=== PATIENT | male | born 1980 | race Caucasian/White ===

== ENCOUNTER 2017-05-25 12:41 | Emergency (ER) | payer OTHER | END 2017-05-25 13:18 | disposition home or self-care (01) | LOC: E/R 12:41 | DX: J20.9 Acute bronchitis, unspecified (principal) | CPT/HCPCS: 99284 ==

== ENCOUNTER 2017-06-17 12:43 | Emergency (ER) | payer OTHER | END 2017-06-17 17:11 | disposition home or self-care (01) | LOC: FTE 12:43 | DX: J06.9 Acute upper respiratory infection, unspecified (principal) | CPT/HCPCS: 71045; 99284-25 ==

== ENCOUNTER → 2017-11-11 19:48 | Emergency (ER) | payer OTHER ==
[2017-11-11] MEDS: LORAZEPAM 1 MG TAB PO (19:39)
[2017-11-11] MEDS: KETOROLAC 60 MG INJ IM (19:39)
== END | disposition home or self-care (01) ==
DX: M54.42 Lumbago with sciatica, left side (principal)
CPT/HCPCS: 96372; 99284-25